=== PATIENT | male | born 1960 | race Caucasian/White ===

== ENCOUNTER 2019-02-01 12:04 | Emergency (ER) | payer OTHER ==
[~2019-02-01] VITALS: Ht 172.7 cm; Wt 97.1 kg
[~2019-02-01 12:04] MED LIST: MULTIVITAMINS1 EAC7 PO; PRAVACHOL20 MG PO
--- NOTE | 2019-02-02 08:09 | EKG ---
[facility] [address] [facility] [place] [address] Signed Normal sinus rhythm RSR' or QR pattern in V1 suggests right ventricular conduction delay Nonspecific T wave abnormality Abnormal ECG No previous ECGs available Confirmed by ISA STERN MD ([id number]) on 02/02/2019 8:09:21 AM Electronically Signed By: ISA STERN MD 02/02/19 0809 PATIENT NAME: CHEYLIZZIE WENDY Electrocardiogram DATE OF : 58 PHYSICIAN: ISA STERN MD REPORT #: [id number] REPORT IS CONFIDENTIAL AND NOT TO BE RELEASED WITHOUT AUTHORIZATION
== END 2019-02-01 16:57 | disposition home or self-care (01) ==
LOC: ED 12:04
DX: R42 Dizziness and giddiness (principal); E78.5 Hyperlipidemia, unspecified; F17.200 Nicotine dependence, unspecified, uncomplicated; Z79.899 Other long term (current) drug therapy
CPT/HCPCS: 70450; 71045; 80053; 84484; 85025; 93005; 93010; 99284-25; 99406

== ENCOUNTER 2020-09-11 12:00 | Emergency (ER) | payer OTHER ==
[~2020-09-11] VITALS: Ht 172.7 cm; Wt 83.9 kg
[2020-09-11] MEDS ORDERED: LIPITOR80 MG GT (12:22)
[2020-09-11] MEDS ORDERED: CYCLOBENZAPRINE10 MG PO (12:23)
[2020-09-11] MEDS ORDERED: NEURONTIN300 MG PO (12:23)
[2020-09-11] MEDS ORDERED: NIACIN500 MG PO (12:24)
== END 2020-09-11 14:03 | disposition home or self-care (01) ==
LOC: ED 12:00
DX: S16.1XXA Strain of muscle, fascia and tendon at neck level, initial encounter (principal); S39.012A Strain of muscle, fascia and tendon of lower back, initial encounter; S29.012A Strain of muscle and tendon of back wall of thorax, initial encounter; S20.211A Contusion of right front wall of thorax, initial encounter; R04.0 Epistaxis; V47.5XXA Car driver injured in collision with fixed or stationary object in traffic accident, initial encounter; Z87.891 Personal history of nicotine dependence; Z79.899 Other long term (current) drug therapy
CPT/HCPCS: 71101; 72040; 72070; 72100; 99284-25

== ENCOUNTER 2025-04-11 09:44 | Emergency (ER) | payer MEDICARE, OTHER ==
[~2025-04-11] VITALS: Ht 172.7 cm; Wt 87.8 kg
[~2025-04-11 09:44] MED LIST changes: +CYCLOBENZAPRINE10 MG PO; +LIPITOR80 MG GT; +NEURONTIN300 MG PO; +NIACIN500 MG PO
[2025-04-11] MEDS ORDERED: ATIVAN1 MG PO (11:54)
[2025-04-11] MEDS ORDERED: ACETAMINOPHEN 500 MG TAB PO ONE (12:00)
[2025-04-11] MEDS ORDERED: KETOROLAC TROMETHAMINE 60 MG/2 ML VIAL IM ONE (12:00)
[2025-04-11 13:03] VITALS: BP 118/74
== END 2025-04-11 13:04 | disposition home or self-care (01) ==
LOC: ED 09:44
DX: M54.50 Low back pain, unspecified (principal); Z87.891 Personal history of nicotine dependence; Z79.899 Other long term (current) drug therapy
CPT/HCPCS: 96372; 99283; A9270; J1885

== ENCOUNTER 2025-08-10 17:24 | Emergency (ER) | payer MEDICARE, OTHER ==
[~2025-08-10] VITALS: Ht 172.7 cm; Wt 87.1 kg
[~2025-08-10 17:24] MED LIST changes: +ATIVAN1 MG PO
[2025-08-10] MEDS ORDERED: HEPARIN SOD,PORK IN 0.45% NACL 500 ML IV ONE (17:36)
[2025-08-10] MEDS ORDERED: NITROGLYCERIN 0.4 MG SUBL ONE (17:37)
[2025-08-10 17:42] LABS: BASOPHILS 0.5 % (0.2-1.2); EOSINOPHILS 0.5 % (0.8-7.0); LYMPHOCYTES 18.0 % (21.8-53.1); MCH 31.9 PG (25.7-32.2); MCHC 34.3 g/dL (32.3-36.5); MCV 93.0 fL (79.0-92.2); MONOCYTES 6.0 % (5.3-12.2); NEUTROPHILS 74.8 % (34.0-67.9); RBC 5.27 M/uL (4.63-6.08)
[2025-08-10] MEDS ORDERED: HEParin SOD (PORCINE) 5,000 UNIT/ML SYR IV ONE (17:45)
[2025-08-10] MEDS ORDERED: NITROGLYCERIN 0.4 MG SUBL SL PRN (17:45)
[2025-08-10] MEDS ORDERED: ATORVASTATIN CA80 MG PO (17:45)
[2025-08-10] MEDS ORDERED: LORAZEPAM1 MG PO (17:45)
[2025-08-10] MEDS ORDERED: METOPROLOL TARTRATE 5 MG/5 ML VIAL IV SCH (17:45)
[2025-08-10] MEDS ORDERED: ASPIRIN 81 MG CHEW PO ONE ×2 (17:45)
[2025-08-10 17:55] LABS: INR 0.99 (0.80-1.30); PROTIME 12.5 Sec (11.2-14.2)
[2025-08-10 17:58] LABS: ALT (SGPT) 38.0 U/L (14-59); AST (SGOT) 47.0 U/L (15-37); GLOMERULAR FILTRATION RATE,EST 82.0 mL/min (>60); PROTEIN, TOTAL 8.3 g/dL (6.4-8.2); UREA NITROGEN 9.0 mg/dL (7-18)
[2025-08-10] MEDS ORDERED: MORPHINE SULFATE 4 MG/ML VIAL IV ONE (18:00)
[2025-08-10] MEDS ORDERED: HEPARIN SOD,PORK IN 0.45% NACL 500 ML IV SCH (18:00)
[2025-08-10] MEDS ORDERED: NITROGLYCERIN 50MG/D5W 250 ML IV SCH (18:00)
--- NOTE | 2025-08-12 19:32 | EKG ---
[facility] [address] [facility] [place] [address] Signed Normal sinus rhythm Incomplete right bundle branch block Left anterior fascicular block ST \T\ T wave abnormality, consider anterolateral ischemia Abnormal ECG When compared with ECG of 01-FEB-2019 12:20, Left anterior fascicular block is now present ST now depressed in Anterolateral leads T wave inversion now evident in Lateral leads Confirmed by Breezy Nguyễn MD () on 08/12/2025 7:31:53 PM Electronically Signed By: BREEZY NGUYỄN MD 08/12/251931 PATIENT NAME: LIZZIE GUERRIER Electrocardiogram DATE OF : 58 PHYSICIAN: BREEZY NGUYỄN MD REPORT #: [id number] REPORT IS CONFIDENTIAL AND NOT TO BE RELEASED WITHOUT AUTHORIZATION
--- NOTE | 2025-08-12 19:33 | EKG ---
[facility] [address] [facility] [place] [address] Signed Normal sinus rhythm Left anterior fascicular block ST \T\ T wave abnormality, consider anterolateral ischemia Abnormal ECG When compared with ECG of 10-AUG-2025 17:24, No significant change was found Confirmed by Breezy Nguyễn MD () on 08/12/2025 7:32:48 PM Electronically Signed By: BREEZY NGUYỄN MD 08/12/25 193 PATIENT NAME: CHEYLIZZIE WENDY Electrocardiogram DATE OF : 58 PHYSICIAN: BREEZY NGUYỄN MD REPORT #: [id number] REPORT IS CONFIDENTIAL AND NOT TO BE RELEASED WITHOUT AUTHORIZATION
--- NOTE | 2025-08-12 19:33 | EKG ---
[facility] [address] [facility] [place] [address] Signed Normal sinus rhythm Left anterior fascicular block Possible Lateral infarct , age undetermined Abnormal ECG When compared with ECG of 10-AUG-2025 17:29, Nonspecific T wave abnormality now evident in Inferior leads T wave inversion no longer evident in Anterior leads Confirmed by Breezy Nguyễn MD () on 08/12/2025 7:33:31 PM Electronically Signed By: BREEZY NGUYỄN MD 08/12/251932 PATIENT NAME: LIZZIE GUERRIER WENDY Electrocardiogram DATE OF : 58 PHYSICIAN: BREEZY NGUYỄN MD REPORT #: [id number] REPORT IS CONFIDENTIAL AND NOT TO BE RELEASED WITHOUT AUTHORIZATION
== END 2025-08-10 18:16 | disposition short-term general hospital (02) ==
LOC: ED 17:24
PROVIDERS: Emergency Medicine
DX: I21.3 ST elevation (STEMI) myocardial infarction of unspecified site (principal); E78.00 Pure hypercholesterolemia, unspecified; Z79.899 Other long term (current) drug therapy; Z87.891 Personal history of nicotine dependence
CPT/HCPCS: 36415; 71045; 80053; 83735; 84484; 85025; 85610; 93005; 93010; 96374; 96375; 99285-25; A9270; J1644; J2270; J2405